=== PATIENT | male | born 1940 | race Caucasian/White ===

== ENCOUNTER 2016-09-29 02:52 | Emergency (ER) | payer MEDICARE, BC ==
[2016-09-29] MEDS ORDERED: BREO1INH INH (03:08)
[2016-09-29] MEDS ORDERED: SPIR1CAP INH (03:08)
[2016-09-29] MEDS ORDERED: LISI2.5T3 PO (03:08)
[2016-09-29] MEDS ORDERED: NEUR300C PO (03:08)
[2016-09-29] MEDS ORDERED: ATEN25TA PO (03:08)
[2016-09-29] MEDS ORDERED: ECOT325T7 PO (03:08)
[2016-09-29] MEDS ORDERED: ATOR1TAB21 PO (03:08)
[2016-09-29] MEDS ORDERED: MULTTAB23 PO (03:08)
[2016-09-29] MEDS ORDERED: FLOM5CAP PO (03:08)
[2016-09-29] MEDS ORDERED: LEVO100T5 PO (03:08)
[2016-09-29] MEDS ORDERED: SING10TA32 PO (03:08)
[2016-09-29] MEDS ORDERED: FLUT1LOT EX (03:08)
[2016-09-29] MEDS ORDERED: ASPIRIN 81 MG CHEW TABLET PO ONE (04:15)
[2016-09-29 04:21] LABS: BASO # 0.1 K/mm3 (0.0-0.2); BASO % 0.8 % (0.0-1.0); EOS # 0.2 K/mm3 (0.0-0.50); EOS % 2.8 % (0.0-3.0); LARGE UNSTAINED CELL # 0.2 K/mm3 (0.0-0.4); LARGE UNSTAINED CELL % 2.3 % (0.0-4.0); LYMPH # 1.5 K/mm3 (1.5-4.5); LYMPH % 15.3 % (24.0-44.0); MEAN CORPUSCULAR HEMOGLOBIN 29.6 pg (27.0-33.0); MEAN CORPUSCULAR HGB CONC 33.3 g/dl (32.0-36.5); MEAN CORPUSCULAR VOLUME 88.8 fl (80.0-96.0); MONO # 0.6 K/mm3 (0.0-0.8); MONO % 6.5 % (0.0-5.0); NEUTROPHILS # 6.3 K/mm3 (1.8-7.7); NEUTROPHILS % 72.3 % (36.0-66.0); PLATELET COUNT, AUTOMATED 217 k/mm3 (150-450); WHITE BLOOD COUNT 8.7 K/mm3 (4.0-10.0)
[2016-09-29 04:38] LABS: ANION GAP 10 MEQ/L (8-16); BLOOD UREA NITROGEN 46 MG/DL (7-18); CALCIUM LEVEL 8.5 MG/DL (8.8-10.2); CARBON DIOXIDE LEVEL 22 MEQ/L (21-32); CHLORIDE LEVEL 111 MEQ/L (98-107); CREATININE FOR GFR 2.22 MG/DL (0.70-1.30); GLOMERULAR FILTRATION RATE 30.6 (>42); GLUCOSE, FASTING 108 MG/DL (83-110); SODIUM LEVEL 143 MEQ/L (136-145)
[2016-09-29 04:40] LABS: POTASSIUM SERUM 5.2 MEQ/L (3.5-5.1)
[2016-09-29] MEDS ORDERED: NS 500 ML IV ONE (06:00)
--- NOTE | 2016-09-29 06:00 | ECGEPIP ---
Stationary ECG Study [facility] - ED Test Date: 2016-09-29 Pat Name: KRISTOFER LUNDBERG Department: Room: - Gender: M [employer] Manager: camron : 1940 Requested By: SILVIA Bob Order Number: [id number] Reading MD: Andre Avalos Measurements Intervals [place] Rate: 61 P: 41 NV: 166 QRS: 24 QRSD: 93 T: 71 QT: 393 QTc: 397 Interpretive Statements SINUS RHYTHM POSSIBLE INFERIOR MYOCARDIAL INFARCTION, OF INDETERMINATE AGE WITH POSTERIOR EXTENSION NO PRIORS Electronically Signed On 09-29-2016 6:00:13 EDT by Andre Avalos
[2016-09-29] MEDS ORDERED: MAALOX 30 ML SUSP *UDC PO ONE (06:30)
--- NOTE | 2016-09-29 07:55 | REP ---
PA and lateral chest: There are no infiltrates, effusions or masses. There are bullae in the upper lobes bilaterally accompanied by linear scarring. The colon is interposed between the diaphragm and dome of the liver as a variant. Cardiac size is normal. Violeta and mediastinum are unremarkable. There is scoliosis convex right at the thoracolumbar junction. There are stabilization rods in the cervical spine. Impression: No acute cardiopulmonary findings. Signed by Chris Soto MD 09/29/2016 07:47 A
[2016-09-29 08:24] VITALS: BP 139/68
--- NOTE | 2016-09-30 10:31 | ECGEPIP ---
Stationary ECG Study [facility] - ED Test Date: 2016-09-29 Pat Name: KRISTOFER LUNDBERG Department: Room: - Gender: M [employer]: camron : 1940 Requested By: SILVIA Bob Order Number: [id number] Reading MD: Doris Henry Measurements Intervals [place] Rate: 54 P: 64 FL: QRS: 24 QRSD: 88 T: 89 QT: 406 QTc: 388 Interpretive Statements SINUS BRADYCARDIA NSTTW ABNORMALITY SIMILAR 09/29/16 Electronically Signed On 09-30-2016 10:31:46 EDT by Doris Henry
== END 2016-09-29 08:32 | disposition home or self-care (01) ==
LOC: M ED 02:52
DX: M79.602 Pain in left arm (principal); N18.9 Chronic kidney disease, unspecified; I25.10 Atherosclerotic heart disease of native coronary artery without angina pectoris; I25.2 Old myocardial infarction; Z82.49 Family history of ischemic heart disease and other diseases of the circulatory system; Z79.899 Other long term (current) drug therapy; Z88.0 Allergy status to penicillin